=== PATIENT | male | born 1965 | race Caucasian/White ===

== ENCOUNTER 2017-04-28 15:12 | Inpatient (IN) | payer SELFPAY ==
[~2017-04-28 15:12] MED LIST: Aspirin 81 MG Tab.EC PO ONE
[2017-04-28] MEDS ORDERED: Nitroglycerin 0.4 MG Tab.SL ONE (15:16)
[2017-04-28] MEDS ORDERED: Aspirin 81 MG Tab.Chew PO ONE (15:22)
[2017-04-28] MEDS ORDERED: Nitroglycerin 0.4 MG Tab.SL SL ONE (15:26)
[2017-04-28] MEDS ORDERED: Nitroglycerin 0.4 MG Tab.SL SL SCH (15:30)
--- NOTE | 2017-04-28 15:31 | EDM.PDOC ---
ED HPI GENERAL MEDICAL PROBLEM - General Chief Complaint: Chest Pain Stated Complaint: CHEST PAIN Time Seen by Provider: 04/28/17 15:16 Source of Information: Reports: Patient, RN Notes Reviewed History Limitations: Reports: No Limitations - History of Present Illness INITIAL COMMENTS - FREE TEXT/NARRATIVE: Arrives by POV with complaint of severe left sided chest pain. 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 He awoke this morning to discover left lower chest pain worse with deep breathing and movement. Denies shortness of breath, radiating pain, palpitations, nausea or vomiting. Onset: Today Location: Reports: Chest Quality: Reports: Ache Severity: Severe Improves with: Reports: None Worsens with: Reports: None Associated Symptoms: Reports: No Other Symptoms - Related Data Allergies Allergy/AdvReac Type Severity Reaction Status Date / Time No Known Allergies Allergy Verified 04/28/17 15:49 Home Meds: Home Meds Aspirin 650 mg PO DAILY 04/28/17 [History] Past Medical History Cardiovascular History: Reports: Hypertension Musculoskeletal History: Reports: Other (See Below) (DVT left lower extremity.) Endocrine/Metabolic History: Reports: Obesity/BMI 30+ - Past Surgical History Musculoskeletal Surgical History: Reports: Other (See Below) (ORIF, right leg, trauma.) ED ROS GENERAL - Review of Systems Review Of Systems: ROS reveals no pertinent complaints other than HPI. ED EXAM, GENERAL - Physical Exam Exam: See Below Exam Limited By: No Limitations General Appearance: Alert, WD/WN, No Apparent Distress, Obese Eye Exam: Bilateral Eye: Normal Inspection Ears: Normal External Exam, Normal Canal, Hearing Grossly Normal, Normal TMs Nose: Normal Inspection, Normal Mucosa, No Blood Throat/Mouth: Normal Inspection, Normal Lips, Normal Teeth, Normal Gums, Normal Oropharynx, Normal Voice, No Airway Compromise Head: Atraumatic, Normocephalic Neck: Normal Inspection, Supple, Non-Tender, Full Range of Motion Respiratory/Chest: Other (Tender to palpation at left lower anterior chest wall. Decreased breath sounds in bilateral basea, otherwise clear breath sounds. ) Cardiovascular: Normal Peripheral Pulses, Regular Rate, Rhythm, No Edema, No Gallop, No JVD, No Murmur, No Rub GI/Abdominal: Other (Benign obese abdomen) (Male) Exam: Deferred Rectal (Males) Exam: Deferred Back Exam: Normal Inspection, Full Range of Motion, NT Extremities: Other (Chronic venous stasis changes to knees bilateral. Pitting edema to knees bilateral, chronic and stable per patient.) Neurological: Alert, Oriented, CN II-XII Intact, Normal Cognition, Normal Gait, Normal Reflexes, No Motor/Sensory Deficits Psychiatric: Normal Affect, Normal Mood EKG INTERPRETATION EKG Date: 04/28/17 Time: 15:00 Rhythm: Other (sinus rhythm) Rate (Beats/Min): 84 [place]: Normal P-Wave: Present QRS: Normal ST-T: Other (borderline T abnormalities, inferior lead.) QT: Normal Course - Vital Signs Last Recorded V/S: Last Vital Signs Temp Pulse Resp BP 139/71 04/28/17 15:50 Pulse Ox - Orders/Labs/Meds Orders: Active Orders 24 hr Category Date Time Status Peripheral IV Care [RC] . DIRECTED Care 04/28/17 15:39 Active CULTURE BLOOD [BC] Stat Lab 04/28/17 15:56 Received CULTURE BLOOD [BC] Stat Lab 04/28/17 16:04 Received UA W/MICROSCOPIC [URIN] Stat Lab 04/28/17 15:37 Uncollected Sodium Chloride 0.9% [Saline Flush] Med 04/28/17 15:36 Active 10 ml FLUSH ASDIRECTED PRN Blood Culture x2 Reflex Set [OM.PC] Stat Oth 04/28/17 15:37 Ordered Peripheral IV Insertion Adult [OM.PC] Stat Oth 04/28/17 15:37 Ordered Medication Orders Sodium Chloride (Saline Flush) 10 ml FLUSH ASDIRECTED PRN PRN Reason: Keep Vein Open Labs: Laboratory Tests 04/28/17 04/28/17 04/28/17 Range/Units 15:04 15:04 15:04 WBC 10.8 H (5.0-10.0) 10^3/uL RBC 5.22 (4.6-6.2) 10^6/uL Hgb 16.9 (14.0-18.0) g/dL Hct 48.4 (40.0-54.0) % MCV 92.7 (80-100) fL MCH 32.4 (27.0-34.0) pg MCHC 34.9 (33.0-35.0) g/dL Plt Count 166 (150-450) 10^3/uL Neut % (Auto) 66.1 (42.2-75.2) % Lymph % (Auto) 23.1 (20.5-50.1) % [place] % (Auto) 7.6 (2-8) % Eos % (Auto) 2.9 (1.0-3.0) % Baso % (Auto) 0.3 (0.0-1.0) % PT 10.0 (9.0-12.0) SEC INR 1.0 (0.9-1.2) APTT 24.6 (22.0-34.0) SEC D-Dimer, Quantitative 1020 H (0-400) ng/mL Sodium 140 (135-145) mmol/L Potassium 3.7 (3.6-5.0) mmol/L Chloride 102 (101-111) mmol/L Carbon Dioxide 26.0 (21.0-31.0) mmol/L Anion Gap 15.7 BUN 18 (7-18) mg/dL Creatinine 0.9 (0.6-1.3) mg/dL Est Cr Clr Drug Dosing TNP Estimated GFR (MDRD) > 60 BUN/Creatinine Ratio 20.00 Glucose 126 H (74-105) mg/dL Calcium 9.1 (8.4-10.2) mg/dl Total Bilirubin 0.9 (0.2-1.0) mg/dL AST 19 (10-42) IU/L ALT 13 (10-60) IU/L Alkaline Phosphatase 71 (42-121) IU/L Creatine Kinase (26-174) IU/L Creatine Kinase Index (0-2.4) % CK-MB (CK-2) (0.4-4.7) ng/mL Troponin I < 0.02 (0.00-0.02) ng/ml B-Natriuretic Peptide < 5 (0-100) pg/ml Total Protein 7.7 (6.7-8.2) g/dl Albumin 4.2 (3.2-5.5) g/dl Globulin 3.5 Albumin/Globulin Ratio 1.20 08/07/17 Range/Units 15:04 WBC (5.0-10.0) 10^3/uL RBC (4.6-6.2) 10^6/uL Hgb (14.0-18.0) g/dL Hct (40.0-54.0) % MCV (80-100) fL MCH (27.0-34.0) pg MCHC (33.0-35.0) g/dL Plt Count (150-450) 10^3/uL Neut % (Auto) (42.2-75.2) % Lymph % (Auto) (20.5-50.1) % [place] % (Auto) (2-8) % Eos % (Auto) (1.0-3.0) % Baso % (Auto) (0.0-1.0) % PT (9.0-12.0) SEC INR (0.9-1.2) APTT (22.0-34.0) SEC D-Dimer, Quantitative (0-400) ng/mL Sodium (135-145) mmol/L Potassium (3.6-5.0) mmol/L Chloride (101-111) mmol/L Carbon Dioxide (21.0-31.0) mmol/L Anion Gap BUN (7-18) mg/dL Creatinine (0.6-1.3) mg/dL Est Cr Clr Drug Dosing Estimated GFR (MDRD) BUN/Creatinine Ratio Glucose (74-105) mg/dL Calcium (8.4-10.2) mg/dl Total Bilirubin (0.2-1.0) mg/dL AST (10-42) IU/L ALT (10-60) IU/L Alkaline Phosphatase (42-121) IU/L Creatine Kinase 102 (26-174) IU/L Creatine Kinase Index 2.4 (0-2.4) % CK-MB (CK-2) 2.40 (0.4-4.7) ng/mL Troponin I (0.00-0.02) ng/ml B-Natriuretic Peptide (0-100) pg/ml Total Protein (6.7-8.2) g/dl Albumin (3.2-5.5) g/dl Globulin Albumin/Globulin Ratio Meds: Medications Generic Name Dose Route Start Last Admin Trade Name Freq PRN Reason Stop Dose Admin Sodium Chloride 10 ml 04/28/17 15:36 Saline Flush FLUSH ASDIRECTED PRN Keep Vein Open Discontinued Medications Generic Name Dose Route Start Last Admin Trade Name Freq PRN Reason Stop Dose Admin Aspirin 81 mg 04/28/17 15:22 04/28/17 15:45 Aspirin PO 04/28/17 15:23 Not Given ONETIME ONE Aspirin 324 mg 04/28/17 15:05 Halfprin PO 04/28/17 15:06 ONETIME ONE Enoxaparin Sodium 100 mg 04/28/17 17:16 Lovenox SUBCUT 04/28/17 17:17 ONETIME ONE Iopamidol 100 ml 04/28/17 16:13 04/28/17 16:59 Isovue-370 (76%) IVPUSH 04/28/17 16:14 90 ml ONETIME ONE Administration Morphine Sulfate 4 mg 04/28/17 15:36 04/28/17 15:46 Morphine IVPUSH 04/28/17 15:37 4 mg ONETIME ONE Administration Morphine Sulfate 4 mg 04/28/17 16:18 Morphine IVPUSH 04/28/17 16:19 ONETIME ONE Morphine Sulfate 4 mg 04/28/17 17:16 Morphine IVPUSH 04/28/17 17:17 ONETIME ONE Nitroglycerin Confirm 04/28/17 15:16 04/28/17 15:50 Nitrostat Administered 04/28/17 15:17 Not Given Dose 0.4 mg .ROUTE .STK-MED ONE Nitroglycerin 0.4 mg 04/28/17 15:26 04/28/17 15:15 Nitrostat SL 04/28/17 15:27 0.4 mg ONETIME ONE Administration - Radiology Interpretation Free Text/Narrative:: Chest x-ray: Bronchitis per rad report. CT chest: Pulmonary artery embolism/thrombus. See rad report. Departure - Departure Time of Disposition: 17:32 ((Admit Dr. Blake)) Disposition: Admitted As Inpatient 67 Condition: Serious Clinical Impression: Pulmonary embolus Qualifiers: Pulmonary embolism type: other Chronicity: acute Acute cor pulmonale presence: without acute cor pulmonale Qualified Code(s): I26.99 - Other pulmonary embolism without acute cor pulmonale Forms: ED Department Discharge - My Orders Last 24 Hours: My Active Orders 04/28/17 15:36 Sodium Chloride 0.9% [Saline Flush] 10 ml FLUSH ASDIRECTED PRN 04/28/17 15:37 UA W/MICROSCOPIC [URIN] Stat Blood Culture x2 Reflex Set [OM.PC] Stat Peripheral IV Insertion Adult [OM.PC] Stat 04/28/17 15:39 Peripheral IV Care [RC] . DIRECTED 04/28/17 15:56 CULTURE BLOOD [BC] Stat 04/28/17 16:04 CULTURE BLOOD [BC] Stat - Assessment/Plan Last 24 Hours: My Active Orders 04/28/17 15:36 Sodium Chloride 0.9% [Saline Flush] 10 ml FLUSH ASDIRECTED PRN 04/28/17 15:37 UA W/MICROSCOPIC [URIN] Stat Blood Culture x2 Reflex Set [OM.PC] Stat Peripheral IV Insertion Adult [OM.PC] Stat 04/28/17 15:39 Peripheral IV Care [RC] . DIRECTED 04/28/17 15:56 CULTURE BLOOD [BC] Stat 04/28/17 16:04 CULTURE BLOOD [BC] Stat
[2017-04-28] MEDS ORDERED: Morphine 4 MG/ML Syringe IVPUSH ONE ×3 (15:36→17:16)
[2017-04-28 15:51] LABS: CHLORIDE,CL 102 mmol/L (101-111); SODIUM,NA 140 mmol/L (135-145)
[2017-04-28] MEDS ORDERED: Iopamidol 755 Mg/ML 100 ML Bottle IVPUSH ONE (16:13)
--- NOTE | 2017-04-28 16:17 | CR ---
Clinical history: 51-year-old male cough and chest pain. Interpretation: Arthritic changes mid dorsal spine and old healed fracture postero-lateral left fifth rib. Normal cardiac silhouette without alveolar edema or dependent effusion. Coarse accentuation central lung markings with some peribronchial "cuffing" typical of reactive airw ay disease but no current signs of air trapping. No lung mass, hilar lymphadenopathy, focal lobar pneumonia or atelectasis/collapse. No pneumothorax. CONCLUSION: Bronchitis.
[2017-04-28] MEDS ORDERED: Enoxaparin 100 MG/1 ML Syringe SUBCUT ONE (17:16)
--- NOTE | 2017-04-28 17:31 | CT ---
Clinical history: 31-year-old 6 foot 4 inch 360 pound male smoker with chest pain and a history of " deep vein thrombosis". Scan technique: Volume acquisition of data from the chest (thorax, mediastinum and lung caballero) obta ined during the intravenous administration of 90 mL nonionic Isovue contrast (5 cc/s via injector an d pulmonary embolism protocol) while patient was lying supine on the Siemens CT scanner [place], [place]. All data archived in the PACS system for storage, reformatting axial/sagittal/coronal planes and study (lung/mediastinal windows). Interpretation: Abnormal. *Intraluminal filling defects (thrombus) second tier pulmonary artery segments, bilaterally. No current associated signs of peripheral pleural-based wedge shaped infarcts ([place] sign), foc al lobar oligemia, or dependent pleural effusion. Normal cardiac silhouette and thoracic aorta. No pericardial effusion or aneurysm. No alveolar edema or effusion. Peribronchial "cuffing" but no lobar pneumonia, atelectasis or collapse. Chronic arthritic changes d orsal spine. CONCLUSION: Pulmonary artery embolism/thrombus.
[2017-04-28] MEDS ORDERED: Ondansetron 4 MG Tab.DIS PO PRN (18:23)
--- NOTE | 2017-04-28 18:53 | PCM.HP ---
H&P History of Present Illness - General Date of Service: 04/28/17 Admit Problem/Dx: Admission Diagnosis/Problem Admission Diagnosis/Problem PE, Pulmonary embolism Source of Information: Patient - History of Present Illness Initial Comments - Free Text/Narative: The patient is a 51-year-old gentleman who has a history of chronic lower extremity edema. The patient has a history of left lower extremity popliteal DVT about 4 years ago. He was treated with Coumadin for 6 month. 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 Subsequently drove here straight fungus constant. This morning he woke up with left sided pleuritic chest pain. The pain is worse with a deep breath, severe, sharp. No associated shortness of breath but the pain makes it difficult to take a deep breath. He has chronic bilateral lower extremity edema which is not changed from baseline according to the patient. There is no calf pain. In the ER the patient was noted to have an elevated d-dimer and CT of the chest showed bilateral pulmonary embolism. - Related Data Allergies/Adverse Reactions: Allergies Allergy/AdvReac Type Severity Reaction Status Date / Time No Known Allergies Allergy Verified 04/28/17 15:49 Home Medications: Home Meds Aspirin 650 mg PO DAILY 04/28/17 [History] Past Medical History Cardiovascular History: Reports: Hypertension Musculoskeletal History: Reports: Other (See Below) (DVT left lower extremity.) Endocrine/Metabolic History: Reports: Obesity/BMI 30+ - Past Surgical History Musculoskeletal Surgical History: Reports: Other (See Below) (ORIF, right leg, trauma.) Social & Family History - Family History Hematologic: Reports: Other (See Below) (No DVT in the family but father has chronic venous status is and chronic leg edema.). Denies: Bleeding Disorder H&P Review of Systems - Review of Systems: Review Of Systems: See Below General: Denies: Fever, Chills Pulmonary: Denies: Shortness of Breath Cardiovascular: Reports: Chest Pain. Denies: Palpitations Gastrointestinal: Denies: Abdominal Pain Genitourinary: Denies: Dysuria Psychiatric: Denies: Confusion Exam - Exam Exam: See Below - Vital Signs Vital Signs: Last Vital Signs Temp Pulse Resp BP 139/71 04/28/17 15:50 Pulse Ox - Exam General: Alert, Oriented Neck: Supple Lungs: Clear to Auscultation Cardiovascular: Regular Rate, Regular Rhythm GI/Abdominal Exam: Normal Bowel Sounds, Soft, Non-Tender Extremities: Pedal Edema (Bilateral lower extremities) Skin: Warm, Dry, Intact Neuro Extensive - Mental Status: Alert, Oriented x3, Normal Mood/Affect - Patient Data Lab Results Last 24 hrs: CT of the chest showed bilateral pulmonary embolism. Result Diagrams: 04/28/17 15:04 04/28/17 15:04 *Q Meaningful Use (ADM) - VTE *Q VTE Criteria *Q: - Stroke *Q Stroke Criteria *Q: - AMI *Q AMI Criteria *Q: - Problem List (1) Pulmonary embolus SNOMED Code(s): 42477528, [id number] ICD Code: I26.99 - OTHER PULMONARY EMBOLISM WITHOUT ACUTE COR PULMONALE Status: Acute Current Visit: Yes Qualifiers: Pulmonary embolism type: other Chronicity: acute Acute cor pulmonale presence: without acute cor pulmonale Qualified Code(s): I26.99 - Other pulmonary embolism without acute cor pulmonale Problem List Initiated/Reviewed/Updated: Yes Orders Last 24hrs: Active Orders 24 hr Category Date Time Status Lidocaine 5% [Lidoderm 5%] Med 04/29/17 09:00 Active 700 mg TOP DAILY Nicotine [Habitrol] Med 04/28/17 19:00 Ordered 14 mg TRDERM DAILY Medication Orders Acetaminophen (Tylenol) 650 mg PO Q4H PRN PRN Reason: Pain (Mild 1-3)/fever Enoxaparin Sodium (Lovenox) 100 mg SUBCUT BID NABEEL Lidocaine (Lidoderm 5%) 700 mg TOP DAILY NABEEL Morphine Sulfate (Morphine) 2 mg IVPUSH Q2H PRN PRN Reason: Pain (severe 7-10) Nicotine (Habitrol) 14 mg TRDERM DAILY NABEEL Ondansetron HCl (Zofran Odt) 4 mg PO Q6H PRN PRN Reason: nausea, able to take PO Oxycodone HCl (Oxycodone) 5 mg PO Q4H PRN PRN Reason: Pain (moderate 4-6) Senna/Docusate Sodium (Senna Plus) 1 tab PO BID PRN PRN Reason: Constipation Sodium Chloride (Saline Flush) 10 ml FLUSH ASDIRECTED PRN PRN Reason: Keep Vein Open Sodium Chloride (Saline Flush) 10 ml FLUSH ASDIRECTED PRN PRN Reason: Keep Vein Open Zolpidem Tartrate (Ambien) 5 mg PO BEDTIME PRN PRN Reason: Sleep Assessment/Plan Comment:: The patient presented with pleuritic chest pain with a history of left lower extremity DVT. Had long drive. Acute bilateral pulmonary embolism Start the patient on Lovenox. We will need to switch to longer term Coumadin or newer anticoagulants. The patient last time had difficulty regulating the INR with frequent Coumadin dosing changes. He would prefer the newer agents with a set dose. 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 Will obtain lower extremity ultrasound to evaluate for DVT to serv as baseline for the future. Pleuritic pain Secondary to pulmonary embolism Will treat with Lidoderm patch, IV morphine, oxycodone when necessary
[2017-04-28] MEDS: Morphine 2 MG/ML Syringe IVPUSH PRN ×2 (20:52→23:24)
[2017-04-28] MEDS: Nicotine 14 MG/24 Hr Patch TRDERM SCH (20:52)
[2017-04-29] MEDS: Morphine 2 MG/ML Syringe IVPUSH PRN ×7 (02:41→22:17)
[2017-04-29] MEDS: Sodium Chloride 0.9% 10 ML Syringe FLUSH PRN ×6 (05:52→22:16)
[2017-04-29] MEDS: oxyCODONE 5 MG Tab PO PRN (07:44)
[2017-04-29] MEDS: Acetaminophen 325 MG Tab PO PRN (07:44)
[2017-04-29] MEDS: Enoxaparin 40 MG/0.4 ML Syringe SUBCUT SCH ×2 (09:27→21:42)
[2017-04-29] MEDS: Nicotine 14 MG/24 Hr Patch TRDERM SCH (09:30)
[2017-04-29] MEDS: Lidocaine 5% 700 MG Patch TOP SCH (09:32)
--- NOTE | 2017-04-29 13:31 | US ---
CLINICAL HISTORY: 51-year-old 360 pound male smoker hospitalized with "pulmonary artery thrombosis" (CT exam) who has remote history of "DVT". Reevaluate legs please. INTERPRETATION: No sign of deep vein thrombosis right lower extremity (apparent postphlebitic scarri ng, i.e., poor compressibility deep veins distal left thigh and behind the knee but normal augmentat ion of flow). Normal compressibility and augmentation deep venous blood flow both calves this obese male (technica lly difficult). No current evidence deep vein thrombosis either popliteal or common femoral veins. CONCLUSION: No current evidence of acute DVT lower extremities.
--- NOTE | 2017-04-29 13:41 | PCM.PN ---
- General Info Date of Service: 04/29/17 Admission Dx/Problem (Free Text): Admission Diagnosis/Problem Admission Diagnosis/Problem PE, Pulmonary embolism Subjective Update: feeling ok continues to have moderate left sided chest pain worse with deep breath better after IV morphine, oxycodone no associated sob Functional Status: Denies: Pain Controlled - Review of Systems General: Denies: Fever, Weakness Pulmonary: Reports: Pleuritic Chest Pain. Denies: Shortness of Breath Cardiovascular: Reports: Chest Pain Gastrointestinal: Denies: Abdominal Pain Genitourinary: Denies: Dysuria - Patient Data Vitals - Most Recent: Last Vital Signs Temp 36.1 C 04/29/17 08:00 Pulse 73 04/29/17 08:00 Resp 20 04/29/17 08:00 BP 126/92 H 04/29/17 08:00 Pulse Ox 92 L 04/29/17 08:00 Weight - Most Recent: 175.54 kg I&O - Last 24 Hours: Intake & Output 04/28/17 04/29/17 04/29/17 22:59 06:59 14:59 Intake Total 960 560 Balance 960 560 Med Orders - Current: Current Medications Acetaminophen (Tylenol) 650 mg PO Q4H PRN PRN Reason: Pain (Mild 1-3)/fever Last Admin: 04/29/17 07:44 Dose: 650 mg Enoxaparin Sodium (Lovenox) 100 mg SUBCUT BID [facility] Last Admin: 04/29/17 09:27 Dose: 100 mg Enoxaparin Sodium (Lovenox) 80 mg SUBCUT Q12HR [facility] Lidocaine (Lidoderm 5%) 700 mg TOP DAILY [facility] Last Admin: 04/29/17 09:32 Dose: 700 mg Morphine Sulfate (Morphine) 2 mg IVPUSH Q2H PRN PRN Reason: Pain (severe 7-10) Last Admin: 04/29/17 12:16 Dose: 2 mg Nicotine (Habitrol) 14 mg TRDERM DAILY [facility] Last Admin: 04/29/17 09:30 Dose: 14 mg Ondansetron HCl (Zofran Odt) 4 mg PO Q6H PRN PRN Reason: nausea, able to take PO Oxycodone HCl (Oxycodone) 5 mg PO Q4H PRN PRN Reason: Pain (moderate 4-6) Last Admin: 04/29/17 07:44 Dose: 5 mg Senna/Docusate Sodium (Senna Plus) 1 tab PO BID PRN PRN Reason: Constipation Sodium Chloride (Saline Flush) 10 ml FLUSH ASDIRECTED PRN PRN Reason: Keep Vein Open Last Admin: 04/29/17 12:15 Dose: 10 ml Sodium Chloride (Saline Flush) 10 ml FLUSH ASDIRECTED PRN PRN Reason: Keep Vein Open Warfarin Sodium (Pharmacy To Dose - Warfarin) 1 dose .XX ASDIRECTED NABEEL Zolpidem Tartrate (Ambien) 5 mg PO BEDTIME PRN PRN Reason: Sleep Discontinued Medications Aspirin (Aspirin) 81 mg PO ONETIME ONE Stop: 04/28/17 15:23 Last Admin: 04/28/17 15:45 Dose: Not Given Aspirin (Halfprin) 324 mg PO ONETIME ONE Stop: 04/28/17 15:06 Last Admin: 04/28/17 18:06 Dose: 324 mg Enoxaparin Sodium (Lovenox) 100 mg SUBCUT ONETIME ONE Stop: 04/28/17 17:17 Last Admin: 04/28/17 18:37 Dose: 100 mg Iopamidol (Isovue-370 (76%)) 100 ml IVPUSH ONETIME ONE Stop: 04/28/17 16:14 Last Admin: 04/28/17 16:59 Dose: 90 ml Morphine Sulfate (Morphine) 4 mg IVPUSH ONETIME ONE Stop: 04/28/17 15:37 Last Admin: 04/28/17 15:46 Dose: 4 mg Morphine Sulfate (Morphine) 4 mg IVPUSH ONETIME ONE Stop: 04/28/17 16:19 Last Admin: 04/28/17 20:51 Dose: Not Given Morphine Sulfate (Morphine) 4 mg IVPUSH ONETIME ONE Stop: 04/28/17 17:17 Last Admin: 04/28/17 18:38 Dose: 4 mg Nitroglycerin (Nitrostat) Confirm Administered Dose 0.4 mg .ROUTE .STK-MED ONE Stop: 04/28/17 15:17 Last Admin: 04/28/17 15:50 Dose: Not Given Nitroglycerin (Nitrostat) 0.4 mg SL ONETIME ONE Stop: 04/28/17 15:27 Last Admin: 04/28/17 15:15 Dose: 0.4 mg - Exam General: Alert, Oriented Neck: Supple Lungs: Clear to Auscultation, Normal Respiratory Effort Cardiovascular: Regular Rate, Regular Rhythm GI/Abdominal Exam: Normal Bowel Sounds, Soft, Non-Tender Extremities: Pedal Edema (b/l ) Skin: Warm, Dry Neurological: No New Focal Deficit Psy/Mental Status: Alert, Normal Affect, Normal Mood - Problem List & Annotations (1) Pulmonary embolus SNOMED Code(s): 38713647, [id number] Code(s): I26.99 - OTHER PULMONARY EMBOLISM WITHOUT ACUTE COR PULMONALE Status: Acute Current Visit: Yes Qualifiers: Pulmonary embolism type: other Chronicity: acute Acute cor pulmonale presence: without acute cor pulmonale Qualified Code(s): I26.99 - Other pulmonary embolism without acute cor pulmonale - Problem List Review Problem List Initiated/Reviewed/Updated: Yes - My Orders Last 24 Hours: My Active Orders 04/28/17 19:00 Nicotine [Habitrol] 14 mg TRDERM DAILY 04/29/17 09:00 Lidocaine 5% [Lidoderm 5%] 700 mg TOP DAILY 04/29/17 11:06 Venous Duplex Legs Bi [CV] Routine 04/29/17 13:30 Warfarin Pharmacy to Dose [Pharmacy to Dose - Warfarin] 1 dose .XX ASDIRECTED 04/29/17 21:00 Enoxaparin [Lovenox] 80 mg SUBCUT Q12HR 04/30/17 05:15 INR,PT,PROTHROMBIN TIME [COAG] DAILY 05/01/17 05:15 INR,PT,PROTHROMBIN TIME [COAG] DAILY 05/02/17 05:15 INR,PT,PROTHROMBIN TIME [COAG] DAILY 05/03/17 05:15 INR,PT,PROTHROMBIN TIME [COAG] DAILY 05/04/17 05:15 INR,PT,PROTHROMBIN TIME [COAG] DAILY - Plan Plan:: The patient presented with pleuritic chest pain with a history of left lower extremity DVT. Had long drive. Acute bilateral pulmonary embolism u/s leg showed chronic/residual thrombus left leg, no apparent new dvt Started the patient on Lovenox. increase dose to 1 mg/kg BID We will need to switch to longer term Coumadin or newer anticoagulants. 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 Pleuritic pain Secondary to pulmonary embolism Will treat with Lidoderm patch, IV morphine, oxycodone when necessary
[2017-04-29] MEDS ORDERED: Enoxaparin 60 MG/0.6 ML Syringe SUBCUT ONE (13:42)
[2017-04-29] MEDS ORDERED: Warfarin 2.5 MG Tab PO ONE (14:00)
[2017-04-29] MEDS: Enoxaparin 80 MG/0.8 ML Syringe SUBCUT SCH (21:39)
[2017-04-30] MEDS: Sodium Chloride 0.9% 10 ML Syringe FLUSH PRN ×6 (03:41→21:24)
[2017-04-30] MEDS: Morphine 2 MG/ML Syringe IVPUSH PRN ×5 (03:41→21:22)
[2017-04-30] MEDS: Acetaminophen 325 MG Tab PO PRN ×3 (09:44→23:38)
[2017-04-30] MEDS: oxyCODONE 5 MG Tab PO PRN ×2 (09:45→13:52)
[2017-04-30] MEDS: Nicotine 14 MG/24 Hr Patch TRDERM SCH (09:46)
[2017-04-30] MEDS: Enoxaparin 80 MG/0.8 ML Syringe SUBCUT SCH ×2 (09:47→21:31)
[2017-04-30] MEDS: Enoxaparin 40 MG/0.4 ML Syringe SUBCUT SCH ×2 (09:47→21:29)
[2017-04-30] MEDS: Lidocaine 5% 700 MG Patch TOP SCH (09:50)
--- NOTE | 2017-04-30 11:14 | EKG ---
04/28/2017- KENYATTA VIDAL - EKG per my reading shows sinus rhythm with inferior T-wave inversion. MOD /[id number]
--- NOTE | 2017-04-30 12:43 | PCM.PN ---
- General Info Date of Service: 04/30/17 Admission Dx/Problem (Free Text): Admission Diagnosis/Problem Admission Diagnosis/Problem PE, Pulmonary embolism Subjective Update: feeling ok continues to have moderate left sided chest pain worse with deep breath mild, chronic dyspnea on exertion better after IV morphine, oxycodone no associated sob - Review of Systems General: Denies: Fever, Weakness Cardiovascular: Reports: Chest Pain, Edema Genitourinary: Denies: Dysuria Neurological: Denies: Confusion - Patient Data Vitals - Most Recent: Last Vital Signs Temp 36.8 C 04/30/17 11:00 Pulse 58 L 04/30/17 11:00 Resp 20 04/30/17 11:00 BP 121/63 04/30/17 11:00 Pulse Ox 93 L 04/30/17 11:00 Weight - Most Recent: 175.54 kg I&O - Last 24 Hours: Intake & Output 04/29/17 04/30/17 04/30/17 22:59 06:59 14:59 Intake Total 2440 680 Balance 2440 680 Lab Results Last 24 Hours: Laboratory Results - last 24 hr 04/30/17 Range/Units 06:11 PT 10.0 (9.0-12.0) SEC INR 1.0 (0.9-1.2) Med Orders - Current: Current Medications Acetaminophen (Tylenol) 650 mg PO Q4H PRN PRN Reason: Pain (Mild 1-3)/fever Last Admin: 04/30/17 09:44 Dose: 650 mg Enoxaparin Sodium (Lovenox) 100 mg SUBCUT BID [facility] Last Admin: 04/30/17 09:47 Dose: 100 mg Enoxaparin Sodium (Lovenox) 80 mg SUBCUT BID [facility] Last Admin: 04/30/17 09:47 Dose: 80 mg Lidocaine (Lidoderm 5%) 700 mg TOP DAILY [facility] Last Admin: 04/30/17 09:50 Dose: 700 mg Miscellaneous Information (Remove Patch) 1 ea TRDERM BEDTIME [facility] Last Admin: 04/29/17 21:46 Dose: Not Given Morphine Sulfate (Morphine) 2 mg IVPUSH Q2H PRN PRN Reason: Pain (severe 7-10) Last Admin: 04/30/17 10:26 Dose: 2 mg Nicotine (Habitrol) 14 mg TRDERM DAILY [facility] Last Admin: 04/30/17 09:46 Dose: 14 mg Ondansetron HCl (Zofran Odt) 4 mg PO Q6H PRN PRN Reason: nausea, able to take PO Oxycodone HCl (Oxycodone) 5 mg PO Q4H PRN PRN Reason: Pain (moderate 4-6) Last Admin: 04/30/17 09:45 Dose: 5 mg Senna/Docusate Sodium (Senna Plus) 1 tab PO BID PRN PRN Reason: Constipation Sodium Chloride (Saline Flush) 10 ml FLUSH ASDIRECTED PRN PRN Reason: Keep Vein Open Last Admin: 04/30/17 10:27 Dose: 10 ml Warfarin Sodium (Pharmacy To Dose - Warfarin) 1 dose .XX ASDIRECTED [facility] Warfarin Sodium (Coumadin) 7.5 mg PO ONETIME ONE Stop: 04/30/17 14:01 Zolpidem Tartrate (Ambien) 5 mg PO BEDTIME PRN PRN Reason: Sleep Discontinued Medications Aspirin (Aspirin) 81 mg PO ONETIME ONE Stop: 04/28/17 15:23 Last Admin: 04/28/17 15:45 Dose: Not Given Aspirin (Halfprin) 324 mg PO ONETIME ONE Stop: 04/28/17 15:06 Last Admin: 04/28/17 18:06 Dose: 324 mg Enoxaparin Sodium (Lovenox) 100 mg SUBCUT ONETIME ONE Stop: 04/28/17 17:17 Last Admin: 04/28/17 18:37 Dose: 100 mg Iopamidol (Isovue-370 (76%)) 100 ml IVPUSH ONETIME ONE Stop: 04/28/17 16:14 Last Admin: 04/28/17 16:59 Dose: 90 ml Morphine Sulfate (Morphine) 4 mg IVPUSH ONETIME ONE Stop: 04/28/17 15:37 Last Admin: 04/28/17 15:46 Dose: 4 mg Morphine Sulfate (Morphine) 4 mg IVPUSH ONETIME ONE Stop: 04/28/17 16:19 Last Admin: 04/28/17 20:51 Dose: Not Given Morphine Sulfate (Morphine) 4 mg IVPUSH ONETIME ONE Stop: 04/28/17 17:17 Last Admin: 04/28/17 18:38 Dose: 4 mg Nitroglycerin (Nitrostat) Confirm Administered Dose 0.4 mg [facility] ONE Stop: 04/28/17 15:17 Last Admin: 04/28/17 15:50 Dose: Not Given Nitroglycerin (Nitrostat) 0.4 mg SL ONETIME ONE Stop: 04/28/17 15:27 Last Admin: 04/28/17 15:15 Dose: 0.4 mg Sodium Chloride (Saline Flush) 10 ml FLUSH ASDIRECTED PRN PRN Reason: Keep Vein Open Last Admin: 04/29/17 12:15 Dose: 10 ml Warfarin Sodium (Coumadin) 7.5 mg PO ONETIME ONE Stop: 04/29/17 14:01 Last Admin: 04/29/17 14:22 Dose: 7.5 mg - Exam General: Alert, Oriented Neck: Supple Lungs: Clear to Auscultation, Normal Respiratory Effort Cardiovascular: Regular Rate, Regular Rhythm GI/Abdominal Exam: Normal Bowel Sounds, Soft, Non-Tender Extremities: Pedal Edema Skin: Warm, Dry Neurological: No New Focal Deficit Psy/Mental Status: Alert, Normal Affect, Normal Mood - Problem List & Annotations (1) Pulmonary embolus SNOMED Code(s): 76499156, 92327319 Code(s): I26.99 - OTHER PULMONARY EMBOLISM WITHOUT ACUTE COR PULMONALE Status: Acute Current Visit: Yes Qualifiers: Pulmonary embolism type: other Chronicity: acute Acute cor pulmonale presence: without acute cor pulmonale Qualified Code(s): I26.99 - Other pulmonary embolism without acute cor pulmonale - Problem List Review Problem List Initiated/Reviewed/Updated: Yes - My Orders Last 24 Hours: My Active Orders 04/29/17 13:30 Warfarin Pharmacy to Dose [Pharmacy to Dose - Warfarin] 1 dose .XX ASDIRECTED 04/29/17 21:00 Enoxaparin [Lovenox] 80 mg SUBCUT BID Remove Patch 1 ea TRDERM BEDTIME 04/30/17 14:00 Warfarin [Coumadin] 7.5 mg PO ONETIME ONE 05/01/17 05:15 BASIC METABOLIC PANEL,BMP [CHEM] AM CBC WITH AUTO DIFF [HEME] AM INR,PT,PROTHROMBIN TIME [COAG] DAILY 05/02/17 05:15 INR,PT,PROTHROMBIN TIME [COAG] DAILY 05/03/17 05:15 INR,PT,PROTHROMBIN TIME [COAG] DAILY 05/04/17 05:15 INR,PT,PROTHROMBIN TIME [COAG] DAILY - Plan Plan:: The patient presented with pleuritic chest pain with a history of left lower extremity DVT. Had long drive. Acute bilateral pulmonary embolism u/s leg showed chronic/residual thrombus left leg, no apparent new dvt Started the patient on Lovenox 1 mg/kg BID Need to switch to longer term Coumadin or newer anticoagulants. 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 Pleuritic pain Secondary to pulmonary embolism Will treat with Lidoderm patch, IV morphine, oxycodone when necessary
[2017-04-30] MEDS ORDERED: Warfarin 2.5 MG Tab PO ONE (14:00)
[2017-05-01] MEDS: Sodium Chloride 0.9% 10 ML Syringe FLUSH PRN ×4 (02:07→14:54)
[2017-05-01] MEDS: Morphine 2 MG/ML Syringe IVPUSH PRN ×4 (02:08→20:36)
[2017-05-01] MEDS: oxyCODONE 5 MG Tab PO PRN ×4 (05:04→21:55)
[2017-05-01 07:07] LABS: CHLORIDE,CL 100 mmol/L (101-111); SODIUM,NA 138 mmol/L (135-145)
[2017-05-01] MEDS: Nicotine 14 MG/24 Hr Patch TRDERM SCH (09:18)
[2017-05-01] MEDS: Lidocaine 5% 700 MG Patch TOP SCH (09:18)
[2017-05-01] MEDS: Enoxaparin 100 MG/1 ML Syringe SUBCUT SCH ×2 (09:21→20:36)
[2017-05-01] MEDS: Enoxaparin 80 MG/0.8 ML Syringe SUBCUT SCH ×2 (09:22→20:36)
[2017-05-01] MEDS: Acetaminophen 325 MG Tab PO PRN ×2 (09:25→13:36)
[2017-05-01] MEDS ORDERED: Warfarin 5 MG Tab PO ONE (14:00)
[2017-05-01] MEDS ORDERED: oxyCODONE 5 MG Tab PO PRN (15:35)
[2017-05-02] MEDS: Morphine 2 MG/ML Syringe IVPUSH PRN ×2 (00:56→11:02)
[2017-05-02] MEDS: Zolpidem 5 MG Tab PO PRN ×2 (01:54→22:59)
[2017-05-02] MEDS: oxyCODONE 5 MG Tab PO PRN ×3 (06:53→20:38)
[2017-05-02] MEDS: Enoxaparin 80 MG/0.8 ML Syringe SUBCUT SCH ×2 (10:16→20:38)
[2017-05-02] MEDS: Enoxaparin 100 MG/1 ML Syringe SUBCUT SCH ×2 (10:16→20:38)
[2017-05-02] MEDS: Nicotine 14 MG/24 Hr Patch TRDERM SCH (10:17)
[2017-05-02] MEDS: Lidocaine 5% 700 MG Patch TOP SCH (10:18)
[2017-05-02] MEDS: Sodium Chloride 0.9% 10 ML Syringe FLUSH PRN (11:01)
[2017-05-02] MEDS ORDERED: Warfarin 2.5 MG Tab PO ONE (14:00)
[2017-05-02] MEDS ORDERED: Warfarin 5 MG Tab PO ONE (14:00)
[2017-05-02] MEDS: Acetaminophen 325 MG Tab PO PRN (22:58)
[2017-05-02] MEDS: diphenhydrAMINE 50 MG Cap PO PRN (22:59)
--- NOTE | 2017-05-03 09:30 | PN ---
DATE: 05/02/2017 SUBJECTIVE: Mr. Romano is a 51-year-old gentleman who was admitted with bilateral pulmonary emboli. He currently is on enoxaparin 180 mg twice a day and has been started on warfarin. INR today is still subtherapeutic at 1.4. His Coumadin dosing was discussed with our clinical pharmacist, and dose has been increased 12.5 mg. Clinically, he seems to be doing well. He is up and ambulatory, although he sleeps quite a bit during the day. Evening nursing staff was concerned that he is not sleeping well, and we looked at the options. He does seem to have some back and leg issues, and nursing staff has been trying to adjust his bed to make it more comfortable. We are going to try Tylenol at bedtime. He does have an order for zolpidem at bedtime, but we will also add p.r.n. Benadryl 50 mg, and he does have a K-pad that can be used for leg and back discomfort. Review of his clinical data shows he is taking adequate fluids. He is voiding and moving his bowels. He is tolerating 100% of his diet. Vital signs remains stable, and he remains afebrile. Today, he had been asleep several times when we attempted to visit him. Later, he was up and ambulatory. We spoke with him. He voices no new concerns or complaints. No new chest pain. No palpitations. No shortness of breath. No increase in leg pain. OBJECTIVE: Vital Signs: Blood pressure is 123/63, pulse 65, respiratory rate 20, oxygen saturation 94% on room air, and he is afebrile. ENT: Otherwise, clear. Chest: Clear. Heart: Regular. Abdomen: Benign. Extremities: Legs showed chronic venous stasis changes. ASSESSMENT AND PLAN: We will continue the present management. We are waiting for him to be therapeutic with his INR. When he is therapeutic, we will discharge him to home on oral Coumadin. Nursing staff had asked for an incentive spirometer, and this order was placed. No other changes are made today. [facility] /[id number] MTDD
[2017-05-03] MEDS: oxyCODONE 5 MG Tab PO PRN ×2 (10:21→21:38)
[2017-05-03] MEDS: Enoxaparin 80 MG/0.8 ML Syringe SUBCUT SCH ×2 (10:23→21:37)
[2017-05-03] MEDS: Enoxaparin 100 MG/1 ML Syringe SUBCUT SCH ×2 (10:24→21:37)
[2017-05-03] MEDS: Lidocaine 5% 700 MG Patch TOP SCH (10:24)
--- NOTE | 2017-05-03 10:24 | PN ---
DATE: 05/01/2017 SUBJECTIVE: Wyatt Romano is a 51-year-old gentleman, who was admitted and found to have bilateral pulmonary emboli. He has been started on warfarin and continues on enoxaparin, he has a therapeutic INR. Past medical history is significant for a previous DVT for which he was on Coumadin. 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 He also has been driving back and forth from [place] to [facility] to help his in-laws. He is high risk for the development of DVTs and pulmonary embolism. His only medication prior to admission had been daily aspirin, he takes 650 mg daily. He denied any trauma to legs and risk factors seem to be as above. Clinical data is reviewed. He is taking in adequate fluids. He is voiding and moving his bowels. He is tolerating his diet. Vital signs have remained stable since admission and he has remained afebrile. LABS: Repeat lab work today included a CBC, PT/INR, and a basic panel. CBC showed normal white count. Platelets have gone down slightly from 166 to 132. Hemoglobin and hematocrit are stable at 16.8 and 49. Basic metabolic panel is unremarkable. BUN and creatinine were 14 and 0.9 with a GFR of more than 60. INR today remains subtherapeutic at 1.0. Pharmacy has been dosing the Coumadin and he has been receiving 7.5 mg and today he was given 10 mg of warfarin. OBJECTIVE: General: He is lying comfortably in his bed. He is pleasant gentleman, who participates in the visit. Vital Signs: Blood pressure 116/76, pulse 86, respiratory rate 20, and oxygen saturation 97%. He is afebrile. HEENT: Unremarkable. ENT is clear. Chest: Showed clear with diminished bilateral breath sounds due to body habitus. Abdomen: Morbidly obese and benign. Extremities: Showed heavy legs with chronic venostasis changes and chronic edema; the skin is thick and tough to touch. Calves were soft and nontender. IMPRESSION: A 51-year-old gentleman, who was admitted with bilateral pulmonary emboli. He has a history of deep vein thrombosis and is high risk for recurrent issues with this history. as well as his morbid obesity, sedentary occupation, and extended travel from [place] to [place]. ASSESSMENT AND PLAN: We will continue the present management and hopefully his INR will be therapeutic and at that point, we will be able to discharge him to home. No other changes are made today. [facility] /[id number] MTDD
[2017-05-03] MEDS: Nicotine 14 MG/24 Hr Patch TRDERM SCH (10:25)
--- NOTE | 2017-05-03 11:47 | PCM.PN ---
- General Info Date of Service: 05/03/17 Admission Dx/Problem (Free Text): Admission Diagnosis/Problem Admission Diagnosis/Problem PE, Pulmonary embolism Subjective Update: He is feeling good, slept well, No shortness of breath or chest pain, No nausea or vomiting, appetite is good and have regular BM Functional Status: Reports: Pain Controlled, Tolerating Diet, Ambulating, Urinating - Review of Systems General: Reports: Appetite (good). Denies: Fever, Fatigue, Malaise, Chills HEENT: Denies: Headaches, Sinus Congestion, Sore Throat, Visual Changes Pulmonary: Denies: Shortness of Breath, Cough, Sputum, Wheezing Cardiovascular: Reports: Dyspnea on Exertion. Denies: Chest Pain, Edema, Lightheadedness Gastrointestinal: Denies: Abdominal Pain, Nausea, Vomiting Genitourinary: Denies: Dysuria, Frequency, Burning, Urgency, Hematuria Musculoskeletal: Denies: Shoulder Pain, Back Pain, Leg Pain, Joint Swelling Skin: Denies: Cyanosis, Jaundice, Bruising, Rash Neurological: Denies: Confusion, Headache, Weakness Psychiatric: Denies: Confusion, Anxiety - Patient Data Vitals - Most Recent: Last Vital Signs Temp 35.6 C 05/03/17 07:00 Pulse 65 05/03/17 07:00 Resp 20 05/03/17 07:00 BP 105/70 05/03/17 07:00 Pulse Ox 95 05/03/17 07:00 Weight - Most Recent: 175.54 kg I&O - Last 24 Hours: Intake & Output 05/02/17 05/03/17 05/03/17 22:59 06:59 14:59 Intake Total 400 1280 Balance 400 1280 Lab Results Last 24 Hours: Laboratory Results - last 24 hr 05/03/17 Range/Units 05:55 PT 13.8 H (9.0-12.0) SEC INR 1.4 H (0.9-1.2) Med Orders - Current: Current Medications Acetaminophen (Tylenol) 650 mg PO Q4H PRN PRN Reason: Pain (Mild 1-3)/fever Last Admin: 05/02/17 22:58 Dose: 650 mg Diphenhydramine HCl (Benadryl) 50 mg PO BEDTIME PRN PRN Reason: Sleep Last Admin: 05/02/17 22:59 Dose: 50 mg Enoxaparin Sodium (Lovenox) 80 mg SUBCUT BID [facility] Last Admin: 05/03/17 10:23 Dose: 80 mg Enoxaparin Sodium (Lovenox) 100 mg SUBCUT BID [facility] Last Admin: 05/03/17 10:24 Dose: 100 mg Lidocaine (Lidoderm 5%) 700 mg TOP DAILY [facility] Last Admin: 05/03/17 10:24 Dose: Not Given Miscellaneous Information (Remove Patch) 1 ea TRDERM BEDTIME [facility] Last Admin: 05/02/17 21:01 Dose: Not Given Morphine Sulfate (Morphine) 2 mg IVPUSH Q2H PRN PRN Reason: Pain (severe 7-10) Last Admin: 05/02/17 11:02 Dose: 2 mg Nicotine (Habitrol) 14 mg TRDERM DAILY [facility] Last Admin: 05/03/17 10:25 Dose: 14 mg Ondansetron HCl (Zofran Odt) 4 mg PO Q6H PRN PRN Reason: nausea, able to take PO Oxycodone HCl (Oxycodone) 10 mg PO Q6H PRN PRN Reason: Pain (moderate 4-6) Last Admin: 05/03/17 10:21 Dose: 10 mg Oxycodone HCl (Oxycodone) 5 mg PO Q6H PRN PRN Reason: Pain (mild 1-3) Senna/Docusate Sodium (Senna Plus) 1 tab PO BID PRN PRN Reason: Constipation Sodium Chloride (Saline Flush) 10 ml FLUSH ASDIRECTED PRN PRN Reason: Keep Vein Open Last Admin: 05/02/17 11:01 Dose: 10 ml Warfarin Sodium (Pharmacy To Dose - Warfarin) 1 dose .XX ASDIRECTED [facility] Warfarin Sodium (Coumadin) 12.5 mg PO ONETIME ONE Stop: 05/03/17 14:01 Zolpidem Tartrate (Ambien) 5 mg PO BEDTIME PRN PRN Reason: Sleep Last Admin: 05/02/17 22:59 Dose: 5 mg Discontinued Medications Aspirin (Aspirin) 81 mg PO ONETIME ONE Stop: 04/28/17 15:23 Last Admin: 04/28/17 15:45 Dose: Not Given Aspirin (Halfprin) 324 mg PO ONETIME ONE Stop: 04/28/17 15:06 Last Admin: 04/28/17 18:06 Dose: 324 mg Enoxaparin Sodium (Lovenox) 100 mg SUBCUT ONETIME ONE Stop: 04/28/17 17:17 Last Admin: 04/28/17 18:37 Dose: 100 mg Enoxaparin Sodium (Lovenox) 100 mg SUBCUT BID [facility] Last Admin: 04/30/17 21:29 Dose: 100 mg Iopamidol (Isovue-370 (76%)) 100 ml IVPUSH ONETIME ONE Stop: 04/28/17 16:14 Last Admin: 04/28/17 16:59 Dose: 90 ml Morphine Sulfate (Morphine) 4 mg IVPUSH ONETIME ONE Stop: 04/28/17 15:37 Last Admin: 04/28/17 15:46 Dose: 4 mg Morphine Sulfate (Morphine) 4 mg IVPUSH ONETIME ONE Stop: 04/28/17 16:19 Last Admin: 04/28/17 20:51 Dose: Not Given Morphine Sulfate (Morphine) 4 mg IVPUSH ONETIME ONE Stop: 04/28/17 17:17 Last Admin: 04/28/17 18:38 Dose: 4 mg Nitroglycerin (Nitrostat) Confirm Administered Dose 0.4 mg .ROUTE .[facility] ONE Stop: 04/28/17 15:17 Last Admin: 04/28/17 15:50 Dose: Not Given Nitroglycerin (Nitrostat) 0.4 mg SL ONETIME ONE Stop: 04/28/17 15:27 Last Admin: 04/28/17 15:15 Dose: 0.4 mg Oxycodone HCl (Oxycodone) 5 mg PO Q4H PRN PRN Reason: Pain (moderate 4-6) Last Admin: 05/01/17 13:35 Dose: 5 mg Sodium Chloride (Saline Flush) 10 ml FLUSH ASDIRECTED PRN PRN Reason: Keep Vein Open Last Admin: 04/29/17 12:15 Dose: 10 ml Warfarin Sodium (Coumadin) 7.5 mg PO ONETIME ONE Stop: 04/29/17 14:01 Last Admin: 04/29/17 14:22 Dose: 7.5 mg Warfarin Sodium (Coumadin) 7.5 mg PO ONETIME ONE Stop: 04/30/17 14:01 Last Admin: 04/30/17 13:51 Dose: 7.5 mg Warfarin Sodium (Coumadin) 10 mg PO ONETIME ONE Stop: 05/01/17 14:01 Last Admin: 05/01/17 13:37 Dose: 10 mg Warfarin Sodium (Coumadin) 10 mg PO ONETIME ONE Stop: 05/02/17 14:01 Last Admin: 05/02/17 14:04 Dose: 10 mg Warfarin Sodium (Coumadin) 2.5 mg PO ONETIME ONE Stop: 05/02/17 14:01 Last Admin: 05/02/17 14:05 Dose: 2.5 mg - Exam Quality Assessment: DVT Prophylaxis. No: Supplemental Oxygen, Urine Catheter General: Alert, Oriented, Cooperative, No Acute Distress HEENT: Pupils Equal, EOMI, Mucous Membr. Moist/[place] Neck: Supple. No: No JVD, No Thyromegaly, Lymphadenopathy, Thyromegaly Lungs: Clear to Auscultation, Normal Respiratory Effort Cardiovascular: Regular Rate, Regular Rhythm, Murmurs GI/Abdominal Exam: Normal Bowel Sounds, Soft, Non-Tender, No Organomegaly. No: Guarding, Rebound (Male) Exam: Deferred Back Exam: Normal Inspection, Full Range of Motion Extremities: Normal Inspection, Pedal Edema, Other (skik color change of LE from PVD) Skin: Warm, Dry, Intact Neurological: No New Focal Deficit, Normal Speech Psy/Mental Status: Alert, Normal Affect, Normal Mood - Problem List & Annotations (1) Pulmonary embolus SNOMED Code(s): 97476690, 14473207 Code(s): I26.99 - OTHER PULMONARY EMBOLISM WITHOUT ACUTE COR PULMONALE Status: Acute Current Visit: Yes Qualifiers: Pulmonary embolism type: other Chronicity: acute Acute cor pulmonale presence: without acute cor pulmonale Qualified Code(s): I26.99 - Other pulmonary embolism without acute cor pulmonale - Problem List Review Problem List Initiated/Reviewed/Updated: Yes - Plan Plan:: The patient presented with pleuritic chest pain with a history of left lower extremity DVT. 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 Pleuritic pain Secondary to pulmonary embolism Will treat with Lidoderm patch, IV morphine, oxycodone when necessary
[2017-05-03] MEDS ORDERED: Warfarin 2.5 MG Tab PO ONE ×2 (14:00)
[2017-05-03] MEDS: diphenhydrAMINE 50 MG Cap PO PRN (22:45)
[2017-05-03] MEDS: Acetaminophen 325 MG Tab PO PRN (22:45)
[2017-05-03] MEDS: Zolpidem 5 MG Tab PO PRN (22:45)
[2017-05-04] MEDS: Lidocaine 5% 700 MG Patch TOP SCH (09:49)
[2017-05-04] MEDS: Enoxaparin 100 MG/1 ML Syringe SUBCUT SCH ×2 (09:50→21:43)
[2017-05-04] MEDS: Enoxaparin 80 MG/0.8 ML Syringe SUBCUT SCH ×2 (09:50→21:43)
[2017-05-04] MEDS: Nicotine 14 MG/24 Hr Patch TRDERM SCH (09:52)
--- NOTE | 2017-05-04 12:36 | PCM.PN ---
- General Info Date of Service: 05/04/17 Admission Dx/Problem (Free Text): Admission Diagnosis/Problem Admission Diagnosis/Problem PE, Pulmonary embolism Subjective Update: He is feeling good, slept well, No shortness of breath or chest pain, No nausea or vomiting, appetite is good and have regular BM Functional Status: Reports: Pain Controlled, Tolerating Diet, Ambulating, Urinating - Review of Systems General: Reports: Appetite (good). Denies: Fever, Chills HEENT: Denies: Headaches, Sinus Congestion, Sore Throat, Visual Changes Pulmonary: Denies: Shortness of Breath, Pleuritic Chest Pain, Cough, Sputum, Wheezing Cardiovascular: Denies: Chest Pain, Dyspnea on Exertion, Edema, Lightheadedness Gastrointestinal: Denies: Abdominal Pain, Diarrhea, Nausea, Vomiting Genitourinary: Denies: Dysuria, Burning, Urgency, Flank Pain Musculoskeletal: Denies: Neck Pain, Shoulder Pain, Foot Pain Skin: Reports: Other (B/L LE with signs of Venous stasis ). Denies: Cyanosis, Jaundice, Bruising, Pruritis, Rash Neurological: Denies: Confusion, Numbness, Tremors, Weakness Psychiatric: Denies: Confusion, Anxiety - Patient Data Vitals - Most Recent: Last Vital Signs Temp 36.5 C 05/04/17 07:00 Pulse 86 05/03/17 19:32 Resp 20 05/04/17 07:00 BP 111/66 05/04/17 07:00 Pulse Ox 97 05/04/17 07:00 Weight - Most Recent: 175.54 kg I&O - Last 24 Hours: Intake & Output 05/03/17 05/04/17 05/04/17 22:59 06:59 14:59 Intake Total 200 400 Balance 200 400 Lab Results Last 24 Hours: Laboratory Results - last 24 hr 05/04/17 Range/Units 05:30 PT 17.7 H (9.0-12.0) SEC INR 1.8 H (0.9-1.2) Med Orders - Current: Current Medications Acetaminophen (Tylenol) 650 mg PO Q4H PRN PRN Reason: Pain (Mild 1-3)/fever Last Admin: 05/03/17 22:45 Dose: 650 mg Diphenhydramine HCl (Benadryl) 50 mg PO BEDTIME PRN PRN Reason: Sleep Last Admin: 05/03/17 22:45 Dose: 50 mg Enoxaparin Sodium (Lovenox) 80 mg SUBCUT BID [facility] Last Admin: 05/04/17 09:50 Dose: 80 mg Enoxaparin Sodium (Lovenox) 100 mg SUBCUT BID [facility] Last Admin: 05/04/17 09:50 Dose: 100 mg Lidocaine (Lidoderm 5%) 700 mg TOP DAILY [facility] Last Admin: 05/04/17 09:49 Dose: Not Given Miscellaneous Information (Remove Patch) 1 ea TRDERM BEDTIME [facility] Last Admin: 05/03/17 20:19 Dose: Not Given Morphine Sulfate (Morphine) 2 mg IVPUSH Q2H PRN PRN Reason: Pain (severe 7-10) Last Admin: 05/02/17 11:02 Dose: 2 mg Nicotine (Habitrol) 14 mg TRDERM DAILY [facility] Last Admin: 05/04/17 09:52 Dose: 14 mg Ondansetron HCl (Zofran Odt) 4 mg PO Q6H PRN PRN Reason: nausea, able to take PO Oxycodone HCl (Oxycodone) 10 mg PO Q6H PRN PRN Reason: Pain (moderate 4-6) Last Admin: 05/03/17 21:38 Dose: 10 mg Oxycodone HCl (Oxycodone) 5 mg PO Q6H PRN PRN Reason: Pain (mild 1-3) Senna/Docusate Sodium (Senna Plus) 1 tab PO BID PRN PRN Reason: Constipation Sodium Chloride (Saline Flush) 10 ml FLUSH ASDIRECTED PRN PRN Reason: Keep Vein Open Last Admin: 05/02/17 11:01 Dose: 10 ml Warfarin Sodium (Pharmacy To Dose - Warfarin) 1 dose .XX ASDIRECTED [facility] Warfarin Sodium (Coumadin) 12.5 mg PO ONETIME ONE Stop: 05/04/17 14:01 Zolpidem Tartrate (Ambien) 5 mg PO BEDTIME PRN PRN Reason: Sleep Last Admin: 05/03/17 22:45 Dose: 5 mg Discontinued Medications Aspirin (Aspirin) 81 mg PO ONETIME ONE Stop: 04/28/17 15:23 Last Admin: 04/28/17 15:45 Dose: Not Given Aspirin (Halfprin) 324 mg PO ONETIME ONE Stop: 04/28/17 15:06 Last Admin: 04/28/17 18:06 Dose: 324 mg Enoxaparin Sodium (Lovenox) 100 mg SUBCUT ONETIME ONE Stop: 04/28/17 17:17 Last Admin: 04/28/17 18:37 Dose: 100 mg Enoxaparin Sodium (Lovenox) 100 mg SUBCUT BID [facility] Last Admin: 04/30/17 21:29 Dose: 100 mg Iopamidol (Isovue-370 (76%)) 100 ml IVPUSH ONETIME ONE Stop: 04/28/17 16:14 Last Admin: 04/28/17 16:59 Dose: 90 ml Morphine Sulfate (Morphine) 4 mg IVPUSH ONETIME ONE Stop: 04/28/17 15:37 Last Admin: 04/28/17 15:46 Dose: 4 mg Morphine Sulfate (Morphine) 4 mg IVPUSH ONETIME ONE Stop: 04/28/17 16:19 Last Admin: 04/28/17 20:51 Dose: Not Given Morphine Sulfate (Morphine) 4 mg IVPUSH ONETIME ONE Stop: 04/28/17 17:17 Last Admin: 04/28/17 18:38 Dose: 4 mg Nitroglycerin (Nitrostat) Confirm Administered Dose 0.4 mg .ROUTE .STK-MED ONE Stop: 04/28/17 15:17 Last Admin: 04/28/17 15:50 Dose: Not Given Nitroglycerin (Nitrostat) 0.4 mg SL ONETIME ONE Stop: 04/28/17 15:27 Last Admin: 04/28/17 15:15 Dose: 0.4 mg Oxycodone HCl (Oxycodone) 5 mg PO Q4H PRN PRN Reason: Pain (moderate 4-6) Last Admin: 05/01/17 13:35 Dose: 5 mg Sodium Chloride (Saline Flush) 10 ml FLUSH ASDIRECTED PRN PRN Reason: Keep Vein Open Last Admin: 04/29/17 12:15 Dose: 10 ml Warfarin Sodium (Coumadin) 7.5 mg PO ONETIME ONE Stop: 04/29/17 14:01 Last Admin: 04/29/17 14:22 Dose: 7.5 mg Warfarin Sodium (Coumadin) 7.5 mg PO ONETIME ONE Stop: 04/30/17 14:01 Last Admin: 04/30/17 13:51 Dose: 7.5 mg Warfarin Sodium (Coumadin) 10 mg PO ONETIME ONE Stop: 05/01/17 14:01 Last Admin: 05/01/17 13:37 Dose: 10 mg Warfarin Sodium (Coumadin) 10 mg PO ONETIME ONE Stop: 05/02/17 14:01 Last Admin: 05/02/17 14:04 Dose: 10 mg Warfarin Sodium (Coumadin) 2.5 mg PO ONETIME ONE Stop: 05/02/17 14:01 Last Admin: 05/02/17 14:05 Dose: 2.5 mg Warfarin Sodium (Coumadin) 12.5 mg PO ONETIME ONE Stop: 05/03/17 14:01 Warfarin Sodium (Coumadin) 12.5 mg PO ONETIME ONE Stop: 05/03/17 14:01 Last Admin: 05/03/17 13:58 Dose: 12.5 mg - Exam Quality Assessment: DVT Prophylaxis. No: Supplemental Oxygen, Urine Catheter General: Alert, Oriented, Cooperative, No Acute Distress HEENT: Pupils Equal, EOMI, Mucous Membr. Moist/[place] Neck: Supple, No JVD. No: Lymphadenopathy, Thyromegaly Lungs: Clear to Auscultation, Normal Respiratory Effort Cardiovascular: Regular Rate, Regular Rhythm, Murmurs GI/Abdominal Exam: Normal Bowel Sounds, Soft, Non-Tender, Distended. No: Guarding, Rebound (Male) Exam: Deferred Back Exam: Normal Inspection Extremities: Normal Inspection, Normal Range of Motion, Pedal Edema Skin: Warm, Dry, Intact Neurological: No New Focal Deficit, Normal Speech, Normal Tone Psy/Mental Status: Alert, Normal Affect, Normal Mood - Problem List & Annotations (1) Pulmonary embolus SNOMED Code(s): 23132120, 72844104 Code(s): I26.99 - OTHER PULMONARY EMBOLISM WITHOUT ACUTE COR PULMONALE Status: Acute Current Visit: Yes Qualifiers: Pulmonary embolism type: other Chronicity: acute Acute cor pulmonale presence: without acute cor pulmonale Qualified Code(s): I26.99 - Other pulmonary embolism without acute cor pulmonale - Problem List Review Problem List Initiated/Reviewed/Updated: Yes - Plan Plan:: The patient presented with pleuritic chest pain with a history of left lower extremity DVT. 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 Pleuritic pain Secondary to pulmonary embolism Will treat with Lidoderm patch, IV morphine, oxycodone when necessary DVT : prophylaxis: on Coumadin and Lovenox GI Prophylaxis: Continue Protonix Code Status: Full Code
[2017-05-04] MEDS: oxyCODONE 5 MG Tab PO PRN ×2 (13:36→21:43)
[2017-05-04] MEDS ORDERED: Warfarin 2.5 MG Tab PO ONE (14:00)
[2017-05-04] MEDS: Acetaminophen 325 MG Tab PO PRN (23:15)
[2017-05-04] MEDS: diphenhydrAMINE 50 MG Cap PO PRN (23:16)
[2017-05-04] MEDS: Zolpidem 5 MG Tab PO PRN (23:16)
[2017-05-05] MEDS ORDERED: Pantoprazole 40 MG Tab.CR PO SCH (06:00)
[2017-05-05 08:21] VITALS: BP 121/69
[2017-05-05] MEDS: Lidocaine 5% 700 MG Patch TOP SCH (09:06)
[2017-05-05] MEDS: Enoxaparin 100 MG/1 ML Syringe SUBCUT SCH (09:12)
[2017-05-05] MEDS: Nicotine 14 MG/24 Hr Patch TRDERM SCH (09:12)
[2017-05-05] MEDS: Enoxaparin 80 MG/0.8 ML Syringe SUBCUT SCH (09:12)
[2017-05-05] MEDS ORDERED: Warfarin 2.5 MG Tab PO ONE (14:00)
--- NOTE | 2017-05-17 02:29 | DISCH ---
DISCHARGE DIAGNOSES: 1. Bilateral pulmonary emboli. 2. History of previous deep venous thrombosis, but no deep venous thrombosis found during this visit. 3. Morbid obesity (387 pounds). 4. Chronic venous stasis of the bilateral lower extremities. 5. Sedentary occupation. 6. Recent history of prolonged travel by car prior to this presentation. BRIEF HISTORY OF PRESENT ILLNESS: Wyatt Romano is a 51-year-old gentleman, who presented to the emergency room with a complaint of left-sided pleuritic chest pain. He has a previous history of a DVT for which he was on Coumadin in the past. He was evaluated in the emergency department. A CT scan of the chest with IV contrast revealed intraluminal filling defects in the second tier of the pulmonary artery segments bilaterally. This finding was consistent with bilateral pulmonary emboli. He was admitted for further management and to begin anticoagulation. PERTINENT LABORATORIES AND X-RAYS: CBC on day of admission showed normal white count and platelets. Hemoglobin and hematocrit were 16.9 and 48.4 and were unchanged prior to discharge. Platelets were 166 on admission and 132,000 prior to discharge. Chemistry showed normal electrolytes. BUN and creatinine were 18 and 0.9 with a GFR of more than 60. LFTs were normal. Troponin was negative. BMP was negative. Initial blood sugar was 126, but followup blood sugar was 100. D-dimer was elevated at 1020. Baseline PT and PTT were within normal limits. INR was followed on a daily basis and was 2.0 on the day of discharge. Two sets of blood cultures remained without growth after 5 days. Two-view chest x-ray taken on the day of admission showed lung markings consistent with bronchitis, but no infiltrate or acute pulmonary findings. Venous Doppler of the bilateral lower extremities showed no current evidence for acute DVT. CT scan of the chest as mentioned above showed bilateral filling defects consistent with pulmonary artery emboli bilaterally. HOSPITAL COURSE: Mr. Romano was admitted as an acute inpatient. He was started on enoxaparin 100 mg twice a day and was started on oral warfarin. IV morphine was used for chest wall pain. He had issues with sleeping, and p.r.n. zolpidem was ordered at bedtime. Eventually, the IV morphine was discontinued, and he was given oral oxycodone p.r.n. for chest wall pain. He was placed on a regular diet. He was later given an incentive spirometer, and a K-pad to the chest wall for comfort. Review of his clinical data showed that he was taking in adequate fluids. He was voiding and moving his bowels. He was tolerating 100% of his meals. His vital signs remained stable throughout the admission, and he remained afebrile. He denied any new chest pain and stated that the left pleuritic chest pain was improving. He denies shortness of breath. He had no orthopnea. No shortness of breath on exertion. No abdominal pain. No change in bowel or bladder habits. No calf or leg pain. On the day of discharge, he was in good spirits. He was eager to go home. He denied any new concerns or complaints. PHYSICAL EXAMINATION: VITAL SIGNS: Blood pressure was 121/69, pulse 62, respiratory rate 18, oxygen saturation 97% on room air. He was afebrile. Weight 387 pounds. Height 6 feet 4 inches. HEENT: Unremarkable. ENT was clear. CHEST: Showed clear with diminished bilateral breath sounds consistent with his body habitus with no wheezes, rales, or rhonchi. HEART: Showed regular rate and rhythm. ABDOMEN: Obese and benign. EXTREMITIES: Showed chronic venous stasis changes below the knee. The skin was septic and tough and discolored, but the calves were soft and nontender. NEUROLOGICAL: He is intact. On the day of discharge, his INR had risen to 2.0. He had been somewhat difficult to anticoagulate, and at the time of discharge, was on 12.5 mg daily of warfarin. He was discharged to continue on 12.5 mg daily. He was going to return to [place]. He is going to stay with his in-laws in [place] over night and then return to the [place]. We encouraged him to take his warfarin daily at the same time, usually afternoon or evening. He is familiar with the routine from before. He should wear compression hose, particularly when he is driving. During long drives, we encouraged him to get out on a regular basis and walk around. He should elevate the legs whenever possible. He should follow up with his primary provider back in [place] as soon as he is home. As soon as he is home, to setup monitoring the blood levels. He was reminded that he should not take aspirin, Motrin, ibuprofen, Advil, Aleve, Naprosyn or naproxen while he is on Coumadin. He should keep Tylenol use to a minimum. We suggested that he get either [id number] Prilosec or Zantac for GI prophylaxis. He should consider walking program to help circulation in the lower legs, and he should seek early care for chest pain, shortness of breath, leg or calf pain. Unfortunately, Mr. 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 He has also been driving back and forth from [place] to [place], [place] to help his in-laws with a project. We encouraged him to get out of the car frequently and walk around. HOME MEDICATIONS: Warfarin 12.5 mg daily. ALLERGIES: No known allergies. CONDITION AT THE TIME OF DISCHARGE: Improved and stable. CODE STATUS: During this admission: Full code. [facility] /[id number]
== END 2017-05-05 15:10 | disposition home or self-care (01) | DRG 176 ==
LOC: DL.ED 15:12 → DL.MS 18:23
PROVIDERS: ADMIT Internal Medicine; ATTEND Internal Medicine
DX: I26.99 Other pulmonary embolism without acute cor pulmonale (principal); Z68.41 Body mass index [BMI] 40.0-44.9, adult; I10 Essential (primary) hypertension; E66.01 Morbid (severe) obesity due to excess calories; Z86.718 Personal history of other venous thrombosis and embolism; Z79.82 Long term (current) use of aspirin
CPT/HCPCS: 36415; 71020; 71260; 80048; 80053; 82550; 82553; 83880; 84484; 85025; 85379; 85610; 85730; 87040; 93005; 93010; 93970; 96372; 96374; 96376; 99284; 99285; A9270-GY; J1650; J2270; J7050; Q0163; Q9967

== ENCOUNTER 2025-01-05 11:25 | Emergency (ER) | payer BC, OTHER ==
[2025-01-05 12:48] LABS: INR 1.1 (0.9-1.2); PROTHROMBIN TIME 11.6 SEC (9.0-12.0)
[2025-01-05 13:10] VITALS: BP 92/80; PULSE 58
== END 2025-01-05 13:43 | disposition home or self-care (01) ==
LOC: DL.ED 11:25
DX: S70.11XA Contusion of right thigh, initial encounter (principal); I10 Essential (primary) hypertension; F17.210 Nicotine dependence, cigarettes, uncomplicated; Z79.01 Long term (current) use of anticoagulants; Z79.899 Other long term (current) drug therapy; W01.0XXA Fall on same level from slipping, tripping and stumbling without subsequent striking against object, initial encounter; Y93.89 Activity, other specified; Y99.0 Civilian activity done for income or pay
CPT/HCPCS: 36415; 85610; 99282; 99283